=== PATIENT | female | born 1965 | race African-American/Black ===

== ENCOUNTER 2017-06-26 11:28 | Observation (INO) | payer OTHER ==
[~2017-06-26] VITALS: Ht 160 cm; Wt 80.3 kg
[~2017-06-26 11:28] MED LIST: CIPRO500 MG PO; FLAGYL500 MG PO; MIRALAX17 GM PO; NORVASC5 MG PO; ORTHO-NOVUM1 EAC2 PO; SENOKOT-S1 TA1 PO; birth control
[2017-06-26 11:31] VITALS: BP 150/83
[2017-06-26 11:57] LABS: ABSOLUTE BASOPHILS 0.1 thou/uL (0.0-0.2); ABSOLUTE LYMPHOCYTES 1.5 thou/uL (0.8-5.3); ABSOLUTE MONOCYTES 0.3 thou/uL (0.0-1.2); ABSOLUTE NEUTROPHILS 4.1 thou/uL (1.6-8.1); EOSINOPHILS 0.2 %; HEMATOCRIT 42.2 % (37.0-47.0); HEMOGLOBIN 14.5 gm/dL (12.0-15.0); LYMPHOCYTES 24.5 %; MCH 31.1 pg (26.0-34.0); MCHC 34.3 g/dL (28.0-37.0); MCV 90.7 fL (80.0-100.0); MONOCYTES 4.7 %; MPV 7.5 fl. (7.2-11.1); NUCLEATED RBCS 0 /100WBC; PLATELET COUNT* 268 thou/uL (150-400); POLYS 69.6 %; RBC 4.66 mil/uL (4.20-5.00); RDW-CV 13.2 % (10.5-14.5); WBC 5.9 thou/uL (4.0-11.0)
[2017-06-26 12:08] LABS: APTT 26.1 Seconds (25.0-31.3)
[2017-06-26 12:09] LABS: ANION GAP 8 mmol/L (7-16); BUN 15 mg/dL (7-18); CALCIUM 8.6 mg/dL (8.5-10.1); CHLORIDE 105 mmol/L (98-107); CO2 27 mmol/L (21-32); GLUCOSE 97 mg/dL (70-99); POTASSIUM 3.9 mmol/L (3.5-5.1); SODIUM 140 mmol/L (136-145)
[2017-06-26 12:20] LABS: ALBUMIN 3.4 g/dL (3.4-5.0); ALKALINE PHOSPHATASE 53 U/L (46-116); LIPASE 80 U/L (73-393); MAGNESIUM 1.8 mg/dL (1.8-2.4); NT-PRO BRAIN NAT PEPTIDE 95 pg/mL (<300); SGOT 16 U/L (15-37); SGPT 19 U/L (30-65); TOTAL BILIRUBIN 0.5 mg/dL (<0.1-1.0); TOTAL PROTEIN 7.1 g/dL (6.4-8.2); TROPONIN-I LEVEL <0.06 ng/mL (<0.06)
[2017-06-26 16:04] VITALS: BP 137/85
[2017-06-26 16:05] VITALS: BP 135/79
--- NOTE | 2017-06-26 16:18 | EKG ---
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 : 1965 Requested By: Adam Holbrook Order Number: [id number] MD: Gary Washington Measurements Intervals [place] Rate: 82 P: 45 NV: 138 QRS: 43 QRSD: 80 T: 28 QT: 349 QTc: 408 Interpretive Statements Sinus rhythm Anterior infarct, old Compared to ECG 03/07/2015 01:44:03 Sinus arrhythmia no longer present Myocardial infarct finding still present Electronically Signed On 06-26-2017 16:18:24 CDT by Gary Washington [email or web address] <ELECTRONICALLY SIGNED> By: Gary Washington MD, [facility] 06/26/17 1618 1134 1134 Gary Washington MD, [facility] /EPI
--- NOTE | 2017-06-26 16:19 | EKG ---
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 : 1965 Requested By: Adam Holbrook Order Number: [id number] MD: Gary Washington Measurements Intervals [place] Rate: 63 P: 50 [place]: 135 QRS: 80 QRSD: 91 T: 31 QT: 383 QTc: 393 Interpretive Statements Sinus rhythm Anteroseptal infarct, age indeterminate Compared to ECG 03/07/2015 01:44:03 Sinus arrhythmia no longer present Myocardial infarct finding still present Electronically Signed On 06-26-2017 16:19:17 CDT by Gary Washington [email or web address] <ELECTRONICALLY SIGNED> By: Gary Washington MD, [facility] 06/26/17 1619 1345 1345 Gary Washington MD, [facility] /EPI
--- NOTE | 2017-06-26 16:47 | NUR ---
PT ADMITTED TO UNIT AROUND 1600 PT IS ALERT AND ORIENTED X 4 PT IS UP AD CLARISA NOT A FALL RISK, PT STATES HER PAIN IS WHEN SHE TAKES A BREATH IT COMES AND GOES AND IT IS TOLERABLE, PT DENEIS SOA ON RA, PT IS SR ON THE MONITOR, PT IS PLESANAT AND COOEPRATIVE, PT HAS CARDIOLOGY CONSULT WHICH HAS SEEN PT AND STATES PT MAY EAT CAN NOT HAVE CAFFIENE AND WILL BE NPO AT MIDNIGHT FOR POSSIBLE STRESS TEST OR CATHERIZATION DEPENDING ON HOW PT IS TONIGHT, WILL CONTINUE TO MONITOR
[2017-06-26 20:30] VITALS: BP 138/79
[2017-06-27] VITALS: BP 112/56
[2017-06-27 04:00] VITALS: BP 111/65
--- NOTE | 2017-06-27 05:15 | NUR ---
ASSUMED CARE AROUND 1930. PT A/OX4 AND PLEASANT, PT'S HERE AT SHIFT CHANGE WITH HOME MEDICATIONS. PHARMACY VERIFIED- FORM IN FRONT OF CHART. TELE MONITOR TRACING SR/ST WITH HR UP TO 110'S. AFTER GETTING UP TO THE BR LAST NIGHT, PT REPORTED 6/10 SHARP CHEST PAIN- TREATED WITH PRN MORPHINE WITH SOME RELIEF. STATED IT WAS NON-RADIATING. DENIED SOA, ON ROOM AIR. IV SALINE LOCKED. UP AD CLARISA. VSS. SLEEPING MEDS GIVEN LAST NIGHT, PT APPEARED TO REST. NPO FOR CARDIOLOGY TODAY. SEE CHARTING. CALL LIGHT IN REACH, WILL CONTINUE WITH PLAN OF CARE.
[2017-06-27 06:16] LABS: CHOLESTEROL 167 mg/dL (<200); HDL CHOLESTEROL 66 mg/dL (>40); LDL CHOLESTEROL 86 mg/dL (<100); TC:HDL 2.5 Ratio (Not establshd); TRIGLYCERIDE 78 mg/dL (<150); VLDL 16 mg/dL (<40)
[2017-06-27 06:17] LABS: SERUM ASSESSMENT Clear
[2017-06-27 09:30] VITALS: BP 130/79
[2017-06-27 12:00] VITALS: BP 123/71
--- NOTE | 2017-06-27 15:25 | NUR ---
Pt out of room for testing, anticipate dc today if testing negative.
--- NOTE | 2017-06-27 17:12 | CARDNUC ---
[place] [address] CARDIAC NUCLEAR IMAGING REPORT Name: YARA NUÑEZ Room: [address] IN [facility]#: [id number] Admission: 06/26/17 Attend Phys: Luca Roberson, Discharge: Date of : 67 Date of Service: 06/27/17 1711 Report #: [id number] THIS REPORT FOR: //name// APPROVED REPORT Study performed: 06/27/2017 08:49:00 Exam: Nuclear Stress Test Indication: Chest pain, Dyspnea Patient Location: In-Patient Room #: 223 Stress Tech: Arlyn Lopez Stress Nurse: Mini Lagunas RN Ht: 5 ft 3 in Wt: 177 lbs BSA: 1.84 m2 BMI: 31.3 Medical History Medical History: HTN Medications: ASA, AMLODIPINE Allergies: No known drug allergies Cardiac Risk Factors: HTN Exercise History: Physically active Meds Held (24 hrs): amlodipine NM EXAM: Myocardial Perfusion REST/STRESS Imaging Protocol: Rest Tc-99m/Stress Tc-99m 1 day Resting Data Rest SPECT myocardial perfusion imaging was performed in supine position 45 minutes following the intravenous injection of 10.1 mCi of Tc-99m Sestamibi. Time of rest injection: 1400 Date: 06/27/2017 The images were gated to evaluate regional wall motion and calculate left ventricular ejection fraction. Administration Route: IV Administration Site: Right AC Exercise Stress At peak stress, the patient was injected intravenously with 33.2mCi of Tc-99m Sestamibi. Time of stress injection: 1600 Date: 06/27/2017 Administration Route: IV Administration Site: Right AC Patient continued to exercise for 6 minute([place] [address] CARDIAC NUCLEAR IMAGING REPORT Name: YARA NUÑEZ Room: [address]#: [id number] Admission: 06/26/17 Attend Phys: Luca Roberson, Discharge: Date of : 67 Date of Service: 06/27/17 1711 Report #: [id number] Gated Stress SPECT was performed 45 minutes after stress injection. The images were gated to evaluate regional wall motion and calculate left ventricular ejection fraction. Study Quality Study: Good Artifact: No artifact Study Data At rest, the left ventricular ejection fraction was 74%.. Post stress, the left ventricular ejection was 76%.. TID = 0.95. Perfusion Normal left ventricular perfusion. Wall Motion Normal left ventricular wall motion. Nuclear Conclusion ECG Findings: negative for ischemia Clinical Findings: negative for ischemia Nuclear Findings: negative for ischemia Exercise Capacity: normal Left Ventricular Function: normal Risk Study: low Myocardial perfusion images show no defect to suggest infarct or ischemia. Left ventricular systolic function was normal on gated studies. This is a low risk study. Interpreted by: Baldemar Diamond M.D. [facility] Electronically Approved: 06/27/2017 17:11:51 Stress Test Details Stress Test: Exercise stress testing was performed using a Mars protocol. HR Resting HR: 82 bpm Max Heart Rate (APMHR): 170 bpm Max HR Achieved: 158 bpm Target HR (85% APMHR): 144 bpm % of APMHR: 92 Recovery HR: 99 bpm BP Resting BP: 140/82 mmHg Max BP: 164/80 [place] [address] CARDIAC NUCLEAR IMAGING REPORT Name: YARA NUÑEZ Room: [address]#: [id number] Admission: 06/26/17 Attend Phys: Luca Roberson, Discharge: Date of : 67 Date of Service: 06/27/17 1711 Report #: [id number] ECG Resting ECG: Sinus Rhythm, normal EKG Stress ECG: Sinus Tachycardia ST Change: None Arrhythmia: None Recovery ECG: Sinus Rhythm, normal EKG Recovery ST Change: None Recovery Arrhythmia: None Clinical Reason for Termination: Chest pain/Anginal equivalent Stress Symptoms: Chest pain Exercise duration: 6 min 44 sec Exercise capacity: 8.16 METs Overall Exercise Capacity for Age: Normal The patient had chest discomfort with exercise that resolved in recovery. Nurse Comments Patient experienced left sided chest pain during exercise, described it as the same pain that brought her to the hospital "a sharp-dull pain", rated at 8, resolving in recovery. Ekg's and symptoms reviewed with Dr. Diamond, no orders received. Patient transported to radiology for stress images. Can Lagunas RN Stress ECG Conclusion The baseline 12-lead electrocardiogram showed normal sinus rhythm with no significant ST or T wave abnormality. EKGs obtained during and post standard Mars protocol exercise showed sinus rhythm and sinus tachycardia with no significant ST or T wave changes when compared to baseline. There were no stress-induced arrhythmias. <Conclusion> The baseline 12-lead electrocardiogram showed normal sinus rhythm with no significant ST or T wave abnormality. EKGs obtained during and post standard Mars protocol exercise showed sinus rhythm and sinus tachycardia with no significant ST or T wave changes when compared to baseline. There were no stress-induced arrhythmias. <ELECTRONICALLY SIGNED> By: Baldemar Diamond MD, FACC 06/27/17 171 10 10 Baldemar Diamond MD, FACC /INF
--- NOTE | 2017-06-27 17:17 | NUR ---
ASSUMED PT CARE AT 0700 PT IS ALERT AND ORIENTE X 4 PT DENIES PAIN OR SOA, PT STRESS TEST WILL BE 1400 PT ABLE TO HAVE LIGHT BREAKFAST WHICH PT ATE PT NPO AFTER BREAKFAST DR BONDS TOLD THIS NURSE THAT IF PT STRESS TEST IS NORMAL PT CAN DISCHARGE, PT WENT FOR STRESS TEST CAME BACK CAN RESUME DIET, MULU FROM CARDIOLOGY CALLED STATED STRESS TEST WAS NORMAL AND PT CAN DISCHARGE AND DOES NOT NEED TO FOLLOW UP, CALLED DR MIXON AND NOTIFIED OF [place]AYA ORDERS AND WAS FINE WITH PT DISCHARGING VAMSHI HAD STATES EARLIER PT CAN DISCHARGE WITH HOME MEDS NO NEW MEDS WERE STARTED, PT IS SR ON MONITOR PT IS NOT A FALL RISK WILL CONTINUE TO MONITOR
[2017-06-27 17:30] VITALS: BP 123/71
--- NOTE | 2017-06-27 17:55 | 2DMMODE ---
[place] [address] 2 D/M-MODE ECHOCARDIOGRAM Name: YARA NUÑEZ Room: [address] IN [facility]#: [id number] Admission: 06/26/17 Attend Phys: Luca Roberson, Discharge: Date of : 67 Date of Service: 06/27/17 1755 Report #: [id number] THIS REPORT FOR: //name// APPROVED REPORT Study performed: 06/27/2017 11:42:08 EXAM: Comprehensive 2D, Doppler, and color-flow Echocardiogram Patient Location: In-Patient Room #: [facility] Status: routine BSA: 1.80 HR: 78 bpm BP: 111/65 mmHg Rhythm: NSR Other Information Study Quality: Good Indications Chest Pain 2D Dimensions LVEF(%): 56.19 (>50%) IVSd: 9.66 (7-11mm) LVOT Diam: 18.25 (18-24mm) LVDd: 46.01 mm PWd: 9.72 (7-11mm) Ascending Ao: 24.91 (22-36mm) LVDs: 32.54 (25-40mm) Aortic Root: 26.49 mm Whiting's LVEF: 56.19 % Volumes Left Atrial Volume (Systole) LA ESV Index: 27.00 mL/m2 Aortic Valve AoV Peak Alfa.: 1.66 m/s AO Peak Gr.: 11.05 mmHg LVOT Max P.80 mmHg AO Mean Gr.: 7.12 mmHg LVOT Mean P.40 mmHg LVOT Max V: 1.10 m/s AO V2 VTI: 32.19 cm LVOT Mean V: 0.71 m/s VEDA (VTI): 1.73 cm2 LVOT V1 VTI: 21.29 cm Mitral Valve E/A Ratio: 1.18 [place] [address] 2 D/M-MODE ECHOCARDIOGRAM Name: YARA NUÑEZ Room: [address] IN [facility]#: [id number] Admission: 06/26/17 Attend Phys: Luca Roberson, Discharge: Date of : 67 Date of Service: 06/27/17 1755 Report #: [id number] MV Decel. Time: 203.05 ms MV E Max Alfa.: 0.96 m/s MV PHT: 58.88 ms MVA (PHT): 3.74 cm2 TDI E/Lateral E': 7.38 E/Medial E': 6.86 Medial E' Alfa.: 0.14 m/s Lateral E' Alfa.: 0.13 m/s Pulmonary Valve PV Peak Alfa.: 0.95 m/s PV Peak Gr.: 3.64 mmHg Tricuspid Valve TR Peak Gr.: 16.07 mmHg RVSP: 21.00 mmHg Left Ventricle The left ventricle is normal size. There is normal LV segmental wall motion. There is normal left ventricular wall thickness. Left ventricular systolic function is normal. LVEF is 55-60%. The left ventricular diastolic function is normal. Right Ventricle The right ventricle is normal size. The right ventricular systolic function is normal. Atria The left atrium size is normal. The right atrium size is normal. Aortic Valve The aortic valve is normal in structure. No aortic regurgitation is present. There is no aortic valvular stenosis. Mitral Valve The mitral valve is normal in structure. Trace mitral regurgitation. No evidence of mitral valve stenosis. Tricuspid Valve The tricuspid valve is normal in structure. Trace tricuspid regurgitation. The RVSP is ___21____ mmHg. Pulmonic Valve The pulmonary valve is normal in structure. There is no pulmonic [place] [address] 2 D/M-MODE ECHOCARDIOGRAM Name: YARA NUÑEZ Room: [address] [place] [facility]#: [id number] Admission: 06/26/17 Attend Phys: Luca Roberson, Discharge: Date of : 67 Date of Service: 06/27/17 1755 Report #: [id number] Great Vessels The aortic root is normal in size. IVC is normal in size and collapses with >50% inspiration Pericardium There is no pericardial effusion. <Conclusion> The left ventricle is normal size. There is normal left ventricular wall thickness. Left ventricular systolic function is normal. LVEF is 55-60%. The left ventricular diastolic function is normal. Trace tricuspid regurgitation. The RVSP is ___21____ mmHg. <ELECTRONICALLY SIGNED> By: Baldemar Diamond MD, FACC 06/27/171754 54 54 Baldemar Diamond MD, FACC /INF
== END 2017-06-27 18:43 | disposition home or self-care (01) ==
LOC: M.ERS 11:28 → M.TBA-ER 14:39 → M.2W 14:39
PROVIDERS: Emergency Medicine Emergency Medical Services; Nurse Practitioner Family; ADMIT Internal Medicine
DX: R07.89 Other chest pain (principal); I10 Essential (primary) hypertension; R06.00 Dyspnea, unspecified; R01.1 Cardiac murmur, unspecified; R79.89 Other specified abnormal findings of blood chemistry; Z90.49 Acquired absence of other specified parts of digestive tract

== ENCOUNTER 2019-10-15 00:36 | Emergency (ER) | payer OTHER ==
[~2019-10-15] VITALS: Ht 160 cm; Wt 76.7 kg
[2019-10-15] MEDS ORDERED: HYDROCODON-ACE1 EAC8 PO (02:00)
[2019-10-15 02:10] VITALS: BP 162/89
== END 2019-10-15 02:10 | disposition home or self-care (01) ==
LOC: M.ERS 00:36
DX: S93.692A Other sprain of left foot, initial encounter (principal); I10 Essential (primary) hypertension; Z90.49 Acquired absence of other specified parts of digestive tract; W01.0XXA Fall on same level from slipping, tripping and stumbling without subsequent striking against object, initial encounter; Y93.89 Activity, other specified; Y92.89 Other specified places as the place of occurrence of the external cause; Y99.0 Civilian activity done for income or pay